=== PATIENT | male | born 1945 | race Caucasian/White ===

== ENCOUNTER 2019-09-13 07:43 | Outpatient (CLI) | payer MEDICARE, SELFPAY ==
--- NOTE | ~2019-09-13 | US_ITS ---
EXAMINATION: US art doppler w press LE BI DATE: 09/13/2019 09:00 INDICATION: Type 1 diabetes with foot ulcer TECHNIQUE: Segmental pressures and plethysmographic and Doppler waveforms of the brachial and lower e xtremity arteries were obtained. COMPARISON: 11/20/2015 FINDINGS: Right and left brachial artery pressures of 131 mm Hg and 135 mm Hg, respectively, are concordant (no rmal difference <= 30 mmHg). The right and left high-thigh pressure indices were unable to be obtaine d due to inability to occlude the vessels. The right ankle-brachial index (LONNY) is 0.83 (normal >= 0.9-1). The right great toe-brachial index (T BI) is 0.50 (normal >= 0.6-0.8). The right lower extremity segmental pressure gradients are increased between the right above and [id number] popliteal arteries (normal gradients <= 20-30 mmHg betwee n adjacent levels on the same leg or the same levels on the two legs). Arterial waveforms are triphas ic at the right common femoral and superficial femoral arteries and biphasic in the more distal arter ies with brisk systolic upstrokes throughout. The left LONNY is 0.92. The left TBI is 0.59. The left lower extremity segmental pressure gradients are increased between the left [id number] popliteal artery and the more distal left dorsalis pedis a nd posterior tibial arteries. Arterial waveforms are triphasic at the left common femoral artery and biphasic in the more distal arteries with brisk systolic upstrokes throughout. IMPRESSION: 1. Bilateral arterial occlusive disease with mildly decreased right LONNY and TBI and with borderline l eft LONNY and minimally decreased left TBI. Reviewed, dictated and finalized at location A. IMPRESSION: 1. Bilateral arterial occlusive disease with mildly decreased right LONNY and TBI and with borderline left LONNY and minimally decreased left TBI.
== END 2019-09-13 07:44 | disposition home or self-care (01) ==
PROVIDERS: PCP Family Medicine; Visit Provider Podiatrist Foot & Ankle Surgery
DX: E10.621 Type 1 diabetes mellitus with foot ulcer (principal); M86.172 Other acute osteomyelitis, left ankle and foot; L97.522 Non-pressure chronic ulcer of other part of left foot with fat layer exposed; R94.39 Abnormal result of other cardiovascular function study
CPT/HCPCS: 93923